=== PATIENT | male | born 1980 | race Two or more races ===

== ENCOUNTER 2016-11-30 15:23 | Emergency (ER) | payer MEDICAID ==
[~2016-11-30] VITALS: Ht 177.8 cm; Wt 76.2 kg
[2016-11-30 15:49] VITALS: BP 113/55
[2016-11-30] MEDS ORDERED: IBUPROFEN 600 MG TAB PO ONE (16:00)
== END 2016-11-30 17:46 | disposition home or self-care (01) ==
LOC: ER 15:38

== ENCOUNTER 2024-10-17 12:10 | Emergency (ER) | payer SELFPAY ==
[2024-10-18] MEDS ORDERED: IBUP-1455 PO (01:03)
[2024-10-18] MEDS ORDERED: CLIN1CAP70 PO (01:03)
== END 2024-10-17 13:09 | disposition left against medical advice (07) ==
LOC: ER 12:10
DX: R22.2 Localized swelling, mass and lump, trunk (principal); Z53.21 Procedure and treatment not carried out due to patient leaving prior to being seen by health care provider

== ENCOUNTER 2024-10-18 00:40 | Emergency (ER) | payer SELFPAY ==
[~2024-10-18] VITALS: Ht 177.8 cm; Wt 73.9 kg
[2024-10-18] MEDS ORDERED: IBUP-1455 PO (01:03)
[2024-10-18] MEDS ORDERED: CLIN1CAP70 PO (01:03)
--- NOTE | 2024-10-18 01:04 | ED.PDOC ---
History of Present Illness(SKN HPI Comments 43-year-old male complaining of abscess to his left shoulder. States he has been going on for one week getting worse. Reports a history of previous abscess in the similar area where he had to get surgical debridement. Patient denies any fever or chills. Nothing makes it better, nothing makes it worse. States it has started to drain tonight. Time Seen by MD: 00:49 History of Present Illness: Nurses Notes Allergies: Coded Allergies: No Known Drug Allergy (Verified Allergy, Unknown, 11/30/16) Information Source: Patient Past Medical History PAST MEDICAL HISTORY: HIV, Denies Surgical History: Denies all surgeries Family History Family History: Unknown Social History Smoker: Non-Smoker Alcohol: Denies ETOH Use Drugs: Denies Drug Use Constitutional: denies: chills, diaphoresis, fatigue, fever, malaise, sweats, weakness, others EENTM: denies: blurred vision, double vision, ear bleeding, ear discharge, ear drainage, ear pain, ear ringing, eye pain, eye redness, hearing loss, mouth pain, mouth swelling, nasal discharge, nose bleeding, nose congestion, nose pain, photophobia, tearing, throat pain, throat swelling, voice changes, others Respiratory: denies: cough, hemoptysis, orthopnea, SOB at rest, shortness of breath, SOB with excertion, stridor, wheezing, others Cardiovascular: denies: chest pain, dizzy spells, diaphoresis, Dyspnea on exertion, edema, irregular heart beat, left arm pain, lightheadedness, palpitations, PND, syncope, others Gastrointestinal: denies: abdomen distended, abdominal pain, blood streaked bowels, constipated, diarrhea, dysphagia, difficulty swallowing, hematemesis, melena, nausea, poor appetite, poor fluid intake, rectal bleeding, rectal pain, vomiting, others Genitourinary: denies: burning, dysuria, flank pain, frequency, hematuria, incontinence, penile discharge, penile sore, pain, testicle pain, testicle swelling, urgency, others Neurological: denies: dizziness, fainting, headache, left sided numbness, left sided weakness, numbness, paresthesia, pre-existing deficit, right sided numbness, right sided weakness, seizure, speech problems, tingling, tremors, weakness, others Musculoskeletal: denies: back pain, gout, joint pain, joint swelling, muscle pain, muscle stiffness, neck pain, others Integumetry: reports: wounds; denies: bruises, change in color, change in hair/nails, dryness, laceration, lesions, lumps, rash, others Allergic/Immunocompromised: denies: Difficulty Healing, Frequent Infections, Hives, Itching, others Physical Exam General Appearance: No Apparent Distress, Normal HEENT: Normal ENT Inspection, Pharynx Normal, TMs Normal Neck: Full Range of Motion, Non-Tender, Normal, Normal Inspection Respiratory: Chest Non-Tender, Lungs Clear, No Accessory Muscle Use, No Respiratory Distress, Normal Breath Sounds Cardiovascular: No Edema, No JVD, No Murmur, No Gallop, Normal Peripheral Pulses, Regular Rate/Rhythm Breast Exam: Deferred Gastrointestinal: No Organomegaly, Non Tender, No Pulsatile Mass, Normal Bowel Sounds, Soft Genitalia: Deferred Pelvic: Deferred Rectal: Deferred Extremities: No calf tenderness, Normal capillary refill, Normal inspection, Normal range of motion, Non-tender, No pedal edema Musculoskeletal : Apperance: Normal Neurologic: Alert, 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 Weeping wound. Multiple open areas.) Lymphatic: No Adenopathy Was a procedure done? Was a procedure done?: No Differential Diagnosis (INTG) Differential Diagnosis: Abrasion, Cellulitis, Contusion Differential Diagnosis: Abscess, AIDS/HIV X-Ray, Labs, Meds, VS Comment Imaging: X-rays and CT scans were reviewed and interpreted by this provider, imaging shows no fractures and no pathological disease. Pending radiology revi ew. Laboratory: Labs reviewed and interpreted by this provider. No significant abnormalities noted. Patient has prior medical visits reviewed. Med reconciliation performed Vital signs reviewed Time of 1ST Reevaluation: 01:03 Reevaluation 1ST: Improved Patient Education/Counseling: Diagnosis, Treatment, Need For Follow Up (Patient advised to follow-up in the emergency room in the next 24 to 48 hours if symptoms do not improve. Advised follow-up with PCP in the next 3 to 5 days. Patient verbalized understanding. ) Family Education/Counseling: Diagnosis Departure 1 Departure Time of Disposition: 01:01 Impression: Primary Impression: Abscess Disposition: 01 HOME / SELF CARE / HOMELESS Condition: Fair e-Prescriptions Ibuprofen Micronized (Ibuprofen) 800 Mg Tab 800 MG PO TID PRN, #40 TAB Prov: LENIN CHÁVEZ 10/18/24 Clindamycin Hcl (Clindamycin Hcl) 300 Mg Cap 300 MG PO QID for 10 Days, #40 CAP Prov: LENIN CHÁVEZ 10/18/24 Discharged With: Self Critical Care Note Critical Care Time?: No Stability Stability form required: No Heart Score Heart Score: Heart Score Response (Comments) Value History N/A 0 EKG N/A 0 Age N/A 0 Risk Factors N/A 0 Troponin N/A 0 Total 0 LENIN CHÁVEZ Oct 18, 2024 01:04
[2024-10-18 02:43] VITALS: BP 104/68; PULSE 101; RESP 18; TEMP 98.3; O2SAT 96
== END 2024-10-18 02:45 | disposition home or self-care (01) ==
LOC: ER 00:40
DX: L02.414 Cutaneous abscess of left upper limb (principal)